=== PATIENT | male | born 1945 | race Caucasian/White ===

== ENCOUNTER 2018-02-26 09:55 | Emergency (ER) | payer OTHER ==
[2018-02-26 10:30] LABS: % BASOPHILS 0.4 % (0.0-2.0); % EOSINOPHILS 1.1 % (0.0-5.0); % MONOCYTES 9.6 % (2.0-10.0); % NEUTROPHILS 74.9 % (40.0-80.0); EOSINOPHILE ABSOLUTE 0.1 Th/cmm (0.1-0.4); HEMATOCRIT 46.4 % (41.0-60); HEMOGLOBIN 15.6 gm/dL (12-16); LYMPHOCYTE ABSOLUTE 1.2 Th/cmm (1.5-3.0); MEAN CELL VOLUME 99.5 fl (80-99); MEAN CORPUSCULAR HEMOGLOBIN 33.5 pg (27.0-31.0); MEAN CORPUSCULAR HGB CONC 33.7 pg (28.0-36.0); MEAN PLATELET VOLUME 8.3 fl; MONOCYTE ABSOLUTE 0.8 Th/cmm (0.3-1.0); NEUTROPHILE ABSOLUTE 6.5 Th/cmm (1.8-8.0); PLATELET COUNT 234 Th/cmm (150-400); RED BLOOD COUNT 4.67 Mil/cmm (3.80-5.80); RED CELL DISTRIBUTION WIDTH 12.7 % (11.5-20.0); WHITE BLOOD COUNT 8.6 Th/cmm (4.8-10.8)
[2018-02-26] MEDS ORDERED: ceFAZolin 1 GM in Sodium Chloride 0.9% 50 ML IV ONE (10:37)
[2018-02-26 10:45] LABS: ALBUMIN 4.1 gm/dL (4.2-5.5); ALKALINE PHOSPHATASE 100 U/L (34-104); ANION GAP 12.5 (7.0-16.0); BILIRUBIN,TOTAL 0.5 mg/dL (0.3-1.0); BUN - UREA NITROGEN 20 mg/dL (7-25); CALCIUM SERUM 8.9 mg/dL (8.6-10.3); CARBON DIOXIDE 24.6 mEq/L (21.0-31.0); CHLORIDE 102 mEq/L (98-107); CREATININE - SERUM 1.5 mg/dL (0.7-1.3); GLUCOSE 112 mg/dL (70-105); PHOSPHOROUS 2.5 mg/dL (2.5-5.0); POTASSIUM SERUM 4.1 mEq/L (3.5-5.1); SGOT 15 U/L (13-39); SGPT/ALT 13 U/L (7-52); SODIUM SERUM 135 mEq/L (136-145); TOTAL PROTEIN,SERUM 8.2 gm/dL (6.0-8.3)
[2018-02-26 10:51] VITALS: BP 135/110
[2018-02-26] MEDS ORDERED: Labetalol 5 mg/mL 20 mL Vial IVP STA (11:03)
[2018-02-26] MEDS ORDERED: Labetalol 5 mg/mL 20 mL Vial ONE (11:09)
--- NOTE | 2018-02-26 11:25 | ED Physician Chart ---
ED Chief Complaint/HPI - Patient Information Date Seen:: 02/26/18 Time Seen:: 10:12 Chief Complaint:: left foot pain History of Present Illness:: left foot pain for a month. Allergies:: Allergies Allergy/AdvReac Type Severity Reaction Status Date / Time No Known Allergies Allergy Verified 02/26/18 10:12 Vitals:: Vital Signs - 8 hr 02/26/18 02/26/18 02/26/18 10:12 10:28 10:50 Temp 98.4 F HR 97 93 RR 19 BP 235/110 135/110 O2 Sat % 98 Historian:: Patient Review:: Nurse's Note Reviewed ED Review of Systems - Review of Systems General/Constitutional: No fever, No chills, No weight loss, No weakness, No diaphoresis, No edema, No loss of appetite Skin: No skin lesions, No rash, No bruising Head: No headache, No light-headedness Eyes: No loss of vision, No pain, No diplopia ENT: No earache, No nasal drainage, No sore throat, No tinnitus Neck: No neck pain, No swelling, No thyromegaly, No stiffness, No mass noted Cardio Vascular: No chest pain, No palpitations, No PND, No orthopnea, No edema Pulmonary: No SOB, No cough, No sputum, No wheezing GI: No nausea, No vomiting, No diarrhea, No pain, No melena, No hematochezia, No constipation, No hematemesis G/U: No dysuria, No frequency, No hematuria Musculoskeletal: Bone or joint pain Endocrine: No polyuria, No polydipsia Psychiatric: No prior psych history, No depression, No anxiety, No suicidal ideation Hematopoietic: No bruising, No lymphadenopathy Allergic/Immuno: No urticaria, No angioedema Neurological: No syncope, No focal symptoms, No weakness, No paresthesia, No headache, No seizure, No dizziness, No confusion, No vertigo ED Past Medical History - Past Medical History Obtainable: Yes Past Medical History: HTN Family Medical History - Family Member Mother History Unknown: Yes ED Physical Exam - Physical Examination Other Gen/Cons comments:: overweight. unkempt looking with fingernails on toes and fingers that are very long. hair is very long. no jaundice. no tremor. Head: Atraumatic Eyes: Lids, conjuctiva normal, PERRL, EOMI Other Skin comments:: left foot epidermal flap that is adherent and not elevated. slight bruise next to it. no pus. no cellulitis. poor circulation. dependent rubor on left foot more than on the right. ENMT: External ears, nose nl Neck: Nontender, No nuchal rigidity Respiratory: Nl effort/Exclusion, Clear to Auscultation, No Wheeze/Rhonchi/Rales Cardio Vascular: RRR, No murmur, gallop, rubs, NL S1 S2 Other GI comments:: distended. ? fluid wave? : No CVA tenderness Other Extremities comments:: dependent rubor more on the left than on the right. left foot epidermal flap that is adherent and not elevated. slight bruise next to it. no pus. no cellulitis. poor circulation. dependent rubor on left foot more than on the right. Neuro/Psych: Alert/oriented, Mood normal Other Neuro/Psych comments:: judgment not normal since the patient wants to go home and not tend to his malignant hypertension and to his left foot. Misc: Normal back ED Labs/Radiology/EKG Results - Lab Results Results: Laboratory Tests 02/26/18 02/26/18 10:25 10:25 WBC 8.6 RBC 4.67 Hgb 15.6 Hct 46.4 MCV 99.5 H MCH 33.5 H MCHC Differential 33.7 RDW 12.7 Plt Count 234 MPV 8.3 Neutrophils % 74.9 Lymphocytes % 14.0 L Monocytes % 9.6 Eosinophils % 1.1 Basophils % 0.4 Sodium 135 L Potassium 4.1 Chloride 102 Carbon Dioxide 24.6 Anion Gap 12.5 BUN 20 Creatinine 1.5 H Est GFR ( Amer) TNP Est GFR (Non-Af Amer) TNP BUN/Creatinine Ratio 13.3 Glucose 112 H Calcium 8.9 Phosphorus 2.5 Magnesium 2.0 Total Bilirubin 0.5 AST 15 ALT 13 Alkaline Phosphatase 100 Total Protein 8.2 Albumin 4.1 L Globulin 4.1 Albumin/Globulin Ratio 1.0 ED Assessment - Assessment General Assessment: EKG from 10:18:47 a.m.: normal sinus rhythm with flipped t wave in AVR. Air down to bone? No evidence of cortical elevation on left foot xray. PATIENT INSISTS ON GOING HOME AND RECEIVING OUTPATIENT TREATMENT FOR HIS LEFT FOOT EVEN THOUGH HE WAS TOLD THAT HE COULD HAVE A DEEP BONE INFECTION CALLED OSTEOMYELITIS, BLOOD INFECTION AND COULD HAVE HIS LEFT FOOT AND LEFT LEG AMPUTATED. HE WAS ALSO TOLD THAT HE COULD OR HAVE A HEART ATTACK OR STROKE FROM HIS MALIGNANT HYPERTENSION. HE DID NOT WANT HIS TO KNOW ANYTHING ABOUT HIS HELP. NEVERTHELESS, HE WANTED TO GO HOME AND RECEIVE OUTPATIENT TREATMENT EVEN THOUGH HE KNEW THAT HE COULD . Patient was competent to sign out AMA. ED Septic Shock - . Is Septic Shock (SBP<90, OR Lactate>4 mmol\L) present?: No - <6hrs of presentation: Vital Signs: Vital Signs - 8 hr 02/26/18 02/26/18 02/26/18 10:12 10:28 10:50 Temp 98.4 F HR 97 93 RR 19 BP 235/110 135/110 O2 Sat % 98 ED Reassessment (Disposition) - Reassessment Reassessment Condition:: Unchanged - Diagnosis Diagnosis:: Left foot infection, suspected osteomyelitis Elevated sed rate Malignant hypertension Renal insufficiency Anemia - Aftercare/Follow up Instructions Aftercare/Follow-Up Instructions:: Refer to Discharge Instructions Notes:: Patient was given referral to Dr. Rachel to get a primary care physician. Medication Prescribed:: Betadine, bactroban, Bactrim, Doxycycline and Amlodipine/Benazepril. - Patient Disposition Discharge/Transfer:: Against Medical Advice Condition at Disposition:: Stable, Improved
--- NOTE | 2018-02-27 08:40 | Diagnostic Imaging Report ---
Left foot (3 views) HISTORY: Pain Narrowing of all DIP and PIP joints. No acute abnormalities. No fractures seen at this time. Calcific density noted adjacent to the lateral aspect of the cuboid bone. The appearance suggests a chronic etiology. Small spur formation seen off the plantar and posterior aspects of the calcaneus. IMPRESSION: 1. No definite acute abnormalities 2. Chronic and degenerative changes as noted above In the presence of recent trauma and persistent symptoms, a repeat radiograph in 5-7 days may be helpful for detection of a subtle or occult fracture.
== END 2018-02-26 12:45 | disposition left against medical advice (07) ==
LOC: ER 09:55
DX: L08.9 Local infection of the skin and subcutaneous tissue, unspecified (principal); I10 Essential (primary) hypertension; D64.9 Anemia, unspecified; N28.9 Disorder of kidney and ureter, unspecified; R70.0 Elevated erythrocyte sedimentation rate
CPT/HCPCS: 99285; 96365; 96375; 93005; 73630; 36415; 85025; 85652; 83735; 84100; 80053; J0690; 87075-90; 90799; A4217; Z7610